=== PATIENT | male | born 1960 | race African-American/Black ===

== ENCOUNTER 2021-10-19 05:12 | Emergency (ER) | payer MEDICAID, OTHER ==
[~2021-10-19] VITALS: Ht 182.9 cm; Wt 70.3 kg
[2021-10-19 07:40] VITALS: BP 135/77
== END 2021-10-19 09:09 | disposition home or self-care (01) ==
LOC: EDBD 05:12 → ER 05:12
DX: S39.012A Strain of muscle, fascia and tendon of lower back, initial encounter (principal); R94.31 Abnormal electrocardiogram [ECG] [EKG]; W18.09XA Striking against other object with subsequent fall, initial encounter; Y93.89 Activity, other specified; Y92.89 Other specified places as the place of occurrence of the external cause; Y99.8 Other external cause status
CPT/HCPCS: 72100; 93005